=== PATIENT | male | born 1995 | race Caucasian/White ===

== ENCOUNTER 2017-11-02 04:02 | Emergency (ER) | payer OTHER ==
[2017-11-02 04:13] VITALS: BP 110/72
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
== END 2017-11-02 05:35 | disposition home or self-care (01) ==
LOC: ER 04:02
DX: S60.221A Contusion of right hand, initial encounter (principal); F17.210 Nicotine dependence, cigarettes, uncomplicated; W22.09XA Striking against other stationary object, initial encounter; Y92.000 Kitchen of unspecified non-institutional (private) residence as the place of occurrence of the external cause
CPT/HCPCS: 99283; 73130; 73110; L3908